=== PATIENT | female | born 2000 | race African-American/Black ===

== ENCOUNTER 2022-12-16 09:34 | Outpatient (CLI) | payer OTHER | END 2022-12-16 09:35 | disposition home or self-care (01) | LOC: TBSIIMAG 09:34 | PROVIDERS: ATTEND Family Medicine Sports Medicine | DX: G54.0 Brachial plexus disorders (principal); G83.24 Monoplegia of upper limb affecting left nondominant side; R60.0 Localized edema | CPT/HCPCS: 71552 ==